=== PATIENT | male | born 1960 | race Caucasian/White ===

== ENCOUNTER 2016-10-23 17:32 | Emergency (ER) | payer OTHER ==
[~2016-10-23] VITALS: Ht 167.6 cm; Wt 71.4 kg
[2016-10-23 18:33] LABS: HEMATOCRIT 40.8 % (38.0-50.0); MCH 31.3 PG (29.0-34.0); MCHC 33.6 G/DL (30.0-36.0); MCV 93.2 FL (86-99); MEAN PLAT.VOLUME 9.4 uM^3 (9.0-12.4); PLATELET COUNT 212 K/uL (156-360); RBC DIS.WIDTH-CV 13.4 % (11.8-14.6); RBC DIS.WIDTH-SD 44.2 % (39-53); RED BLOOD COUNT 4.38 M/uL (4.00-5.50); WHITE BLOOD COUNT 5.6 K/uL (4.1-10.2)
[2016-10-23 18:43] LABS: CHLORIDE 109 mEq/L (99-109); POTASSIUM 4.2 mEq/L (3.7-5.4); SODIUM 145 mEq/L (136-147)
[2016-10-23 18:45] LABS: GLUCOSE 82 mg/dL (70-99)
[2016-10-23 18:46] LABS: ANION GAP 13 MEQ/L (2-14)
[2016-10-23 18:48] LABS: SERUM ETHYL ALCOHOL 363 mg/dL
[2016-10-23 18:49] LABS: GFR ESTIMATE (CALCULATED) > 59 mL/min/
[2016-10-23 18:50] LABS: UREA NITROGEN (BUN) 14 mg/dL (9-23)
[2016-10-23 18:54] LABS: TROP-I INTERPRETATION NEGATIVE; TROPONIN-I 0.01 ng/mL (0.0-0.30)
[2016-10-23 19:00] VITALS: BP 140/87
== END 2016-10-23 19:15 | disposition left against medical advice (07) ==
LOC: EME 17:32
PROVIDERS: Emergency Medicine
DX: R07.9 Chest pain, unspecified (principal); F10.129 Alcohol abuse with intoxication, unspecified; I10 Essential (primary) hypertension; F17.200 Nicotine dependence, unspecified, uncomplicated
CPT/HCPCS: 80048; 83880; 84484; 85027; 93005; 99281; 99284; G0480

== ENCOUNTER 2018-01-18 01:59 | Emergency (ER) | payer OTHER ==
[~2018-01-18] VITALS: Ht 167.6 cm; Wt 72.7 kg
[2018-01-18] MEDS ORDERED: PERCOCET 5/31 TABLET PO (04:43)
[2018-01-18 05:00] VITALS: BP 179/95
== END 2018-01-18 05:00 | disposition home or self-care (01) ==
LOC: EME 01:59
PROC: 0RSJXZZ Reposition Right Shoulder Joint, External Approach (ICD-10-PCS; principal; 2018-01-18)
DX: S43.014A Anterior dislocation of right humerus, initial encounter (principal); S42.251A Displaced fracture of greater tuberosity of right humerus, initial encounter for closed fracture; X50.1XXA Overexertion from prolonged static or awkward postures, initial encounter; I10 Essential (primary) hypertension; Z88.0 Allergy status to penicillin; F17.200 Nicotine dependence, unspecified, uncomplicated
CPT/HCPCS: 71045; 73030; 73060; 99281; 99285

== ENCOUNTER 2018-02-10 09:33 | Day surgery (SDC) | payer OTHER ==
[~2018-02-10] VITALS: Ht 167.6 cm; Wt 66.0 kg
[~2018-02-10 09:33] MED LIST: CYCLOBENZAPRINE10 MG PO; GABAPENTIN300 MG PO; PERCOCET 10/1 TABLET PO; PERCOCET 5/31 TABLET PO
[2018-02-10 10:13] VITALS: BP 183/90
[2018-02-10 18:30] VITALS: BP 203/98
[2018-02-10 19:31] VITALS: BP 179/97
[2018-02-10 20:00] VITALS: BP 170/90
== END 2018-02-10 20:09 | disposition home or self-care (01) ==
LOC: SDC
PROC: 0PSC04Z Reposition Right Humeral Head with Internal Fixation Device, Open Approach (ICD-10-PCS; principal; 2018-02-10)
DX: S42.251A Displaced fracture of greater tuberosity of right humerus, initial encounter for closed fracture (principal); W19.XXXA Unspecified fall, initial encounter; Y92.009 Unspecified place in unspecified non-institutional (private) residence as the place of occurrence of the external cause; Z88.0 Allergy status to penicillin; I10 Essential (primary) hypertension; F17.210 Nicotine dependence, cigarettes, uncomplicated
CPT/HCPCS: 73020; 76000; 93005; J0330; J1170; J2250; J2405; J2795; J3010